=== PATIENT | male | born 1980 | race African-American/Black ===

== ENCOUNTER 2019-09-27 16:27 | Emergency (ER) | payer MEDICAID ==
[~2019-09-27] VITALS: Ht 170.2 cm; Wt 91.0 kg
[2019-09-27 16:31] VITALS: BP 154/119
--- NOTE | 2019-09-27 16:39 | PHYS DOC ---
Adult General Chief Complaint Chief Complaint: FOOT INJURY PAIN HPI HPI Patient is a 39 year old male who presents with complaint of left ankle pain. States that he slipped yesterday and twisted his ankle. He has pain to the medial aspect that is moderate. His pain is worse today. He has been taking naproxen without relief. He has an Jeffrey wrap in place and also is walking with a cane. He is able to wiggle his toes and has normal sensation. Review of Systems Review of Systems All other systems were reviewed and found to be within normal limits, except as documented in this note. Physical Exam Physical Exam Constitutional: Well developed, well nourished, no acute distress, non-toxic appearance. [] HENT: Normocephalic, atraumatic, bilateral external ears normal, oropharynx moist, no oral exudates, nose normal. [] Eyes: PERRLA, EOMI, conjunctiva normal, no discharge. [] Neck: Normal range of motion, no tenderness, supple, no stridor. [] Cardiovascular:Heart rate regular rhythm, no murmur [] Lungs & Thorax: Bilateral breath sounds clear to auscultation [] Abdomen: Bowel sounds normal, soft, no tenderness, no masses, no pulsatile masses. [] Skin: Warm, dry, no erythema, no rash. [] Back: No tenderness, no CVA tenderness. [] Extremities: Normal except for the left ankle which has an Jeffrey wrap in place with obvious swelling to the medial aspect. Decreased range of motion secondary to pain. Pulses are normal Neurologic: Alert and oriented X 3, normal motor function, normal sensory function, no focal deficits noted. [] Psychologic: Affect normal, judgement normal, mood normal. [] Current Patient Data Vital Signs Vital Signs Date Time Temp Pulse Resp B/P (MAP) Pulse Ox O2 Delivery O2 Flow Rate FiO2 09/27/19 16:31 98.5 119 18 154/119 (131) 94 Room Air 98.5 EKG EKG [] Radiology/Procedures Radiology/Procedures ANKLE LEFT 3V History: Fall, pain Comparison: None. Findings: 3 views of the left ankle are submitted. There is a small ossific fragment along the medial surface of the proximal talus possibly a small avulsed bone fragment from the talus. There is soft tissue swelling greater medially about the ankle. There is a corticated ossific body distal to the tip of the fibula likely chronic. Impression: 1. There is likely acute small avulsed bone fragment emanating from the medial aspect of the proximal talus. [] Course & Med Decision Making Course & Med Decision Making Pertinent Labs and Imaging studies reviewed. (See chart for details) 1738: Patient's x-ray shows a small avulsion fracture. I spoke with Dr. Hackett who recommends a stirrup splint, crutches, pain medications and follow-up in clinic. Stirrup splint was placed to the left lower leg by nursing staff. Patient tolerated well and is neurovascularly intact post application. Dragon Disclaimer Dragon Disclaimer This electronic medical record was generated, in whole or in part, using a voice recognition dictation system. Departure Departure Impression: Primary Impression: Avulsion fracture of left talus Disposition: 01 HOME, SELF-CARE Condition: STABLE Referrals: YADIEL HACKETT MD Please call for follow up in the morning. Patient Instructions: Avulsion Fracture Scripts Hydrocodone/Apap 5-325 (NORCO 5-325 TABLET) 1 Each Tablet 1-2 TAB PO Q4-6HRS for pain, #20 TAB Prov: ANAIS URBANO DO 09/27/19 Ibuprofen (IBUPROFEN) 800 Mg Tablet 800 MG PO PRN Q8HRS PRN for INFLAMMATION, #20 TAB Prov: ANAIS URBANO DO 09/27/19 ANAIS URBANO DO Sep 27, 2019 16:39
--- NOTE | 2019-09-27 17:25 | RAD ---
ANKLE LEFT 3V History: Fall, pain Comparison: None. Findings: 3 views of the left ankle are submitted. There is a small ossific fragment along the medial surface of the proximal talus possibly a small avulsed bone fragment from the talus. There is soft tissue swelling greater medially about the ankle. There is a corticated ossific body distal to the tip of the fibula likely chronic. Impression: 1. There is likely acute small avulsed bone fragment emanating from the medial aspect of the proximal talus. Electronically signed by: Syed Kahn MD (09/27/2019 5:22 PM) [facility]
[2019-09-27] MEDS ORDERED: IBUP-1060 PO (17:41)
[2019-09-27] MEDS ORDERED: HYDR-3164 PO (17:41)
== END 2019-09-27 18:20 | disposition home or self-care (01) ==
LOC: ER 16:27
DX: S92.152A Displaced avulsion fracture (chip fracture) of left talus, initial encounter for closed fracture (principal); W18.39XA Other fall on same level, initial encounter; Y93.89 Activity, other specified; Y92.89 Other specified places as the place of occurrence of the external cause; Y99.8 Other external cause status
CPT/HCPCS: 29515; 73610; 99283

== ENCOUNTER → 2019-10-05 | Outpatient (CLI) | payer MEDICAID ==
[2019-09-27 16:31] VITALS: BP 154/119
[~2019-10-05] MED LIST: HYDR-3164 PO; IBUP-1060 PO
--- NOTE | 2019-10-05 16:26 | RAD ---
VENOUS LOWER EXTREMITY LEFT 10/05/2019 2:15 PM Clinical Information: Calf pain after injury.. Comparison: None. Technique: Multiple grayscale, color Doppler, and spectral Doppler sonographic images of the lower extremity venous structures were obtained. Findings: The left common femoral, femoral, and popliteal veins exhibit normal compression, respiratory phasicity, and augmentation. No intraluminal thrombi are identified. Color Doppler flow is demonstrated in the left posterior tibial veins. Greater saphenous veins are patent at the saphenofemoral junction. Impression: 1. No evidence of deep venous thrombosis. Electronically signed by: Lena Dolna MD (10/05/2019 4:23 PM) [facility]
== END ==
LOC: US 15:37
PROVIDERS: ATTEND Orthopaedic Surgery
DX: M79.662 Pain in left lower leg (principal)
CPT/HCPCS: 93971

== ENCOUNTER → 2019-11-13 | Outpatient (CLI) | payer MEDICAID ==
--- NOTE | 2019-11-13 11:08 | RAD ---
MR of the left lower leg HISTORY: Achilles tendon rupture. Left calf pain and gastrocnemius muscle pain. TECHNIQUE: Routine multiplanar sequences are obtained centered over the mid to distal tibia and extending through the Achilles insertion. FINDINGS: There is a high-grade tear of the Achilles tendon, located 5 cm proximal to the calcaneal insertion. The tear involves at least 90 percent of the tendon fibers, which are proximally retracted by 4 cm. The tendon itself is diffusely thickened and heterogeneous, most likely due to pre-existing tendinosis. Feathery edema identified within the visualized distal gastrocnemius muscle. Soft tissue edema within the pre-Achilles fat. The visualized tibia and fibula are intact without evidence of acute fracture or aggressive bone destruction. Incidentally noted is a small tibiotalar joint effusion. IMPRESSION: 1. High-grade tear of the Achilles tendon, near complete, located 5 cm above the calcaneal insertion with about 4 cm retraction. 2. Diffuse intramuscular low-grade strain of the visualized gastrocnemius muscle. Electronically signed by: Piero Mcfadden MD (11/13/2019 11:05 AM) [facility]
== END ==
LOC: MRI 08:50
PROVIDERS: ATTEND Orthopaedic Surgery
DX: S86.012A Strain of left Achilles tendon, initial encounter (principal); M25.475 Effusion, left foot; X58.XXXA Exposure to other specified factors, initial encounter; Y93.89 Activity, other specified; Y92.89 Other specified places as the place of occurrence of the external cause; Y99.8 Other external cause status
CPT/HCPCS: 73718

== ENCOUNTER → 2019-11-17 | Outpatient (CLI) | payer MEDICAID ==
[~2019-11-17] MED LIST changes: +LEVE100020 PO
== END | disposition home or self-care (01) ==
LOC: LAB 14:56
PROVIDERS: ATTEND Orthopaedic Surgery
DX: Z01.818 Encounter for other preprocedural examination (principal); Z11.59 Encounter for screening for other viral diseases; M66.862 Spontaneous rupture of other tendons, left lower leg; S66.012A Strain of long flexor muscle, fascia and tendon of left thumb at wrist and hand level, initial encounter
CPT/HCPCS: C9803; U0003; 36415

== ENCOUNTER → 2019-11-20 | Day surgery (SDC) | payer MEDICAID ==
[~2019-11-20] VITALS: Ht 167.6 cm; Wt 85.7 kg
[~2019-11-20] MED LIST changes: +BUPIVACAINE-EPI 0.25%-1:200000 MPF 30 ML VIAL. ONE; +DESFLURANE 61 TO 120 MINUTES IH ONE; +DEXAMETHASONE SOD PHOS 4 MG/ML VIAL ONE; +GLYCOPYRROLATE 1 MG/5 ML VIAL. ONE; +HYDROcodone/APAP 5/325MG 1 TAB TABLET PO ONE; +HYDROmorphone 2 MG/ML VIAL IV PRN; +IV RINGERS,LACTATED 1000ML 1,000 ML IV SCH; +KETOROLAC 30 MG/ML VIAL. ONE; +LIDOCAINE 1% PF 2 ML VIAL. ID PRN; +LIDOCAINE 2% PF 5 ML VIAL. ONE; +MORPHINE SULFATE 2 MG/ML VIAL. ONE; +NEOSTIGMINE METHYLSULFATE 5 MG/5 ML SYRINGE. ONE; +ONDANSETRON PF 4 MG/2 ML VIAL. IV PRN; +ONDANSETRON PF 4 MG/2 ML VIAL. ONE; +PROCHLORPERAZINE 10 MG/2 ML VIAL. IV PRN; +PROCHLORPERAZINE 10 MG/2 ML VIAL. ONE; +PROPOFOL 10 MG/ML (20ML) VIAL. IV ONE; +ROCURONIUM 50 MG/5 ML VIAL. ONE; +SUCCINYLCHOLINE 200 MG/10 ML VIAL. ONE; +ceFAZolin 2GM PREMIX 2 GM/50 ML BAG IV ONE; +fentaNYL PF VIAL 100 MCG/2 ML VIAL IV PRN; +fentaNYL PF VIAL 100 MCG/2 ML VIAL ONE
[2019-11-20] MEDS: MORPHINE SULFATE 2 MG/ML VIAL. IV PRN ×2 (13:54→14:10)
[2019-11-20] MEDS: fentaNYL PF VIAL 100 MCG/2 ML VIAL IV PRN ×2 (13:54→14:10)
--- NOTE | 2019-11-20 14:02 | PDOC4 ---
Operative Note Operative Note PREOPERATIVE DIAGNOSIS: Strain of left Achilles tendon, initial encounter S86.012A POSTOPERATIVE DIAGNOSIS: Strain of left Achilles tendon, initial encounter S86. 012A PROCEDURE PERFORMED: Repair, primary, open, ruptured Achilles tendon, CPT 14957. SURGEON: Yadiel Hackett M.D. PATIENT INTAKE REPRESENTATIVE: Placido POON ANESTHESIA: General. ESTIMATED BLOOD LOSS: 25 mL TOURNIQUET: 25 minutes at 300 mm Hg COMPLICATIONS: None. SPECIMENS: None. DRAINS: None. INDICATIONS FOR PROCEDURE: Simone is a 39-year old with a left Achilles tendon rupture. Examination was difficult due to guarding, but MRI confirms the high- grade Achilles rupture with some strain of the proximal musculature. I recommended surgical repair, but we discussed the option of nonsurgical treatment with the cast or other immobilization. He tried a boot as initial nonoperative treatment but has not been able to recover any strength of plant arflexion. Surgical repair has a lower risk of re-rupture but has a higher risk of skin healing and wound healing complications, infections or other potential surgical complications. The risks of complications is low for a healthy individual, and we discussed the potential risks of infection, bleeding, blood clots, scarring, re-rupture, stiffness, or other potential surgical or an esthetic complications. All of her questions about surgery were answered and she desires to proceed. A written consent was obtained. DESCRIPTION OF PROCEDURE: The patient was identified in the preoperative holding area. The correct left lower extremity was marked by me. The patient was taken to the operating room where a general anesthetic was used. Preoperative antibiotics were given intravenously. A time-out procedure was performed. The patient was positioned prone on the operating table with the bony prominences well-padded and with eyes protected. A tourniquet was placed on the operative left thigh. The limb was prepared with ChloraPrep solution from the tourniquet to the toes and sterile drapes were applied. Sterile gloves were placed over the toes and heel to further drape out the foot. An Esmarch bandage was used to exsanguinate the limb and the tourniquet was inflated to 300 mmHg. A longitudinal incision was made slightly medial to the midline of the Achilles, centered over the area of the palpable defect. Sharp dissection was used and Bovie electrocautery was used only as needed for hemostasis. The peritenon was scarred to the underlying tissue. Division of the peritenon and Achilles tendon scar was performed and a palpable defect was noted with intervening abnormal granulation and scar tissue of poor strength. I excised this poor tissue, removing less than 4 cm of the scar length, until I got back to healthier tendon edges proximally and distally. Circumferential dissection was performed around the proximal and distal tendon stumps. After preparation and cleansing of the tendon ends, the foot was plantarflexed and the repair commenced. I used #5 FiberWire suture, and a [place] suture pattern while my physician assistant psychiatry maintained the tendon reduction by plantarflexing the foot and by using Madhav clamps to hold the ends together. The needle entered the proximal end of the lateral portion of the tendon where I placed three running locking sutures laterally, working proximal to distal, and then crossed the rupture into the distal Achilles tendon fragment, and continued with three running locking sutures laterally, and three running locking sutures medially, crossed the repair again, and placed three final running locking sutures in the proximal medial Achilles tendon. An additional #5 FiberWire suture was placed in a modified Riddle pattern. The suture ends were now tied with the secure reapproximation of the tendon fibers while my physician assistant psychiatry maintained the tendon reduction. A #1-0 PDS was used in a running fashion circumferentially around the tendon for further samaritan of the tendon architecture. A secure repair was obtained and the tendon feels smooth to palpation and intact. The tourniquet was released. Bovie electrocautery was used as needed for h emostasis. Thorough saline irrigation was used and the outer gloves were changed by the operating staff. Next, 30 mL of 0.25% bupivacaine with epinephrine was injected at the skin edges for additional hemostasis and pain relief. The paratenon was recreated with 2-0 PDS suture by me. My physician assistant psychiatry repaired the subcutaneous tissues with #2-0 Vicryl inverted interrupted sutures. Finally, the skin was reapproximated with 3-0 Prolene horizontal mattress and simple sutures by my physician assistant psychiatry. Xeroform and sterile dressing were applied. The leg was splinted in gravity dorsiflexion with a bulky sterile dressing under the splint. Needle and sponge counts were correct. There were no apparent complications. YADIEL HACKETT MD November 20, 2019 14:01
[2019-11-20 14:03] VITALS: BP 156/87
== END | disposition home or self-care (01) ==
LOC: SURG 11:09
PROVIDERS: ATTEND Orthopaedic Surgery
DX: S86.012A Strain of left Achilles tendon, initial encounter (principal); S92.155D Nondisplaced avulsion fracture (chip fracture) of left talus, subsequent encounter for fracture with routine healing; G40.802 Other epilepsy, not intractable, without status epilepticus; F17.210 Nicotine dependence, cigarettes, uncomplicated; M79.662 Pain in left lower leg; M25.572 Pain in left ankle and joints of left foot; Z79.899 Other long term (current) drug therapy; X58.XXXA Exposure to other specified factors, initial encounter; Y93.89 Activity, other specified; Y92.89 Other specified places as the place of occurrence of the external cause; Y99.8 Other external cause status
CPT/HCPCS: 27650; A7015; J0330; J0696; J1100; J1885; J2270; J2405; J2704; J2710; J3010; J3490; J0780